=== PATIENT | male | born 1975 | race Caucasian/White ===

== ENCOUNTER → 2020-03-19 | Outpatient (CLI) | payer BC ==
[~2020-03-19] MED LIST: FLAGYL500 MG PO; ZOFRAN4 MG PO
[2020-03-19 09:16] LABS: BUN/CREATININE RATIO 22 (0-10)
[2020-03-21 12:14] LABS: CHOLESTEROL, TOTAL 224 mg/dL (100-199); HDL SIZE 8.6 nm (>=9.2); HDL-C 31 mg/dL (>39); HDL-P (TOTAL) 30.3 umol/L (>=30.5); LARGE HDL-P 1.3 umol/L (>=4.8); LARGE VLDL-P 14.7 nmol/L (<=2.7); LDL SIZE 19.8 nm (>20.5); LDL SIZE 19.8 nm (>=20.8); LDL-C 137 mg/dL (0-99); LDL-P 2164 nmol/L (<1000); LP-IR SCORE 91 (<=45); SMALL LDL-P 1600 nmol/L (<=527); TRIGLYCERIDES 311 mg/dL (0-149); VLDL SIZE 56.8 nm (<=46.6)
[2020-03-22 13:10] LABS: TESTOSTERONE, SERUM 53 ng/dL (264-916)
== END ==
LOC: LAB 08:20
PROVIDERS: Emergency Medicine
DX: E11.69 Type 2 diabetes mellitus with other specified complication (principal); E29.1 Testicular hypofunction; E78.2 Mixed hyperlipidemia; I10 Essential (primary) hypertension; J01.01 Acute recurrent maxillary sinusitis; J20.8 Acute bronchitis due to other specified organisms; K21.9 Gastro-esophageal reflux disease without esophagitis; R10.12 Left upper quadrant pain; R35.1 Nocturia; R53.83 Other fatigue; R73.09 Other abnormal glucose
CPT/HCPCS: 36415; 80053; 83036; 84402; 84403; 84550

== ENCOUNTER → 2020-09-19 | Outpatient (CLI) | payer BC ==
[2020-09-19 11:15] LABS: HEMOGLOBIN 14.7 gm/dl (14.0-17.5); RED BLOOD COUNT 5.01 M/UL (4.20-5.50); WHITE BLOOD COUNT 11.4 K/UL (4.5-11.0)
[2020-09-19 11:30] LABS: BUN/CREATININE RATIO 15 (0-10)
[2020-09-23 18:10] LABS: TESTOSTERONE, SERUM 45 ng/dL (264-916)
== END ==
LOC: LAB 09:41
PROVIDERS: Emergency Medicine
DX: R53.83 Other fatigue (principal); E29.1 Testicular hypofunction; I10 Essential (primary) hypertension; E78.2 Mixed hyperlipidemia; E11.65 Type 2 diabetes mellitus with hyperglycemia
CPT/HCPCS: 36415; 80053; 80061; 83036; 84402; 84403; 85027

== ENCOUNTER → 2021-10-03 | Outpatient (CLI) | payer BC ==
[2021-10-03 09:53] LABS: HEMOGLOBIN 14.3 gm/dl (14.0-17.5); RED BLOOD COUNT 5.04 M/UL (4.20-5.50); WHITE BLOOD COUNT 11.7 K/UL (4.5-11.0)
[2021-10-03 10:16] LABS: BUN/CREATININE RATIO 18 (0-10)
== END ==
LOC: LAB 08:36
PROVIDERS: Nurse Practitioner
DX: Z12.5 Encounter for screening for malignant neoplasm of prostate (principal); E11.9 Type 2 diabetes mellitus without complications; I10 Essential (primary) hypertension; E78.5 Hyperlipidemia, unspecified
CPT/HCPCS: 36415; 80053; 80061; 82607; 83036; 84153; 84439; 84443; 85027